=== PATIENT | male | born 1955 | race Caucasian/White ===

== ENCOUNTER 2016-10-25 11:04 | Inpatient (IN) | payer OTHER ==
--- NOTE | 2016-10-25 11:45 | PROVIDER DOCUMENTATION ---
Addendum entered and electronically signed by Carmelina Ovalles Scribe 10/25/16 18: 28: EKG Interpretation - EKG Time of EKG reading by physician:: 18:02 EKG Read and Signed by:: Silverio Lee EKG Interpretation (*Must complete 3 of following elements*): Normal Rate: 63 Rhythm: sinus rhythm with 1st degree AV block [place]: normal Original Note: HPI-Male Problem - General Chief Complaint: Urinary Retention Stated Complaint: ALLERGIC REACTION Time Seen by Provider: 10/25/16 11:38 Source: patient Allergies/Adverse Reactions: Patient Allergies Allergy/AdvReac Type Severity Reaction Status Date / Time Penicillins Allergy UNSURE Verified 10/25/16 13:26 TOLD A CHILD HE WAS ALLERGIC Home Medications: Home Medication List Medication Instructions Recorded Confirmed Last Taken Type Amlodipine Besylate 10 mg PO DAILY 10/25/16 10/25/16 Unknown History Benazepril HCl 40 mg PO DAILY 10/25/16 10/25/16 Unknown History Cholecalciferol (Vit D3) [Vitamin 5,000 unit PO DAILY 10/25/16 10/25/16 Unknown History D3] Escitalopram [Lexapro] 5 mg PO DAILY 10/25/16 10/25/16 Unknown History Ezetimibe [Zetia] 10 mg PO DAILY 10/25/16 10/25/16 Unknown History Fluticasone Propionate [Flovent 1 inh ALEXA BID 10/25/16 10/25/16 Unknown History Diskus] Omeprazole 40 mg PO DAILY 10/25/16 10/25/16 Unknown History Spironolactone 25 mg PO DAILY 10/25/16 10/25/16 Unknown History Tizanidine HCl 8 mg PO QHS 10/25/16 10/25/16 Unknown History Valacyclovir HCl [Valacyclovir] 1,000 mg PO BID 10/25/16 10/25/16 Unknown History - History of Present Illness-Male Nature of Presenting Problem: patient is a 61 y/o M that presents to the ER with urinary retention x 24 hours. patient has been on Valacylovir( started for cold sores). Has some suprapubic tenderness. no fever/chills or n/v/d. Location of Complaint: reports: suprapubic Radiation: reports: none Quality of Pain: reports: fullness, pressure Severity in ED: reports: moderate Onset/Duration: reports: gradual, last night Timing: reports: still present, constant Context/Activities at Onset: reports: none Urinary Symptoms: reports: retention. denies: dysuria, hematuria Associated Symptoms: reports: back/neck pain. denies: chest pain, constipation , fatigue, fever/chills, nausea, vomiting Similar Symptoms Previously?: No Recently seen or treated by another doctor?: No Review of Systems - Adult - REVIEW OF SYSTEMS - ADULT Constitutional: denies: chills, fever Eyes: reports: no symptoms reported Ears, Nose, Mouth & Throat: reports: no symptoms reported Cardiovascular: reports: no symptoms reported Respiratory: denies: cough, shortness of breath, wheezing Gastrointestinal: reports: abdominal pain. denies: diarrhea, nausea, vomiting Genitourinary: reports: urinary retention. denies: dysuria, flank pain, hematuria Musculoskeletal: reports: back pain. denies: joint pain, neck pain Integumentary: reports: no symptoms reported Neurological: reports: no symptoms reported Psychiatric: reports: no symptoms reported Endocrine: reports: no symptoms reported Hematologic/Lymphatic: reports: no symptoms reported Allergic/Immunologic: reports: no symptoms reported All Other Systems: Reviewed and Negative Past History - Adult - PAST MEDICAL HISTORY-ADULT Review of Records: reports: Old Records Reviewed, Nursing Assessment Review, Medications Reviewed Physical Exam-General - PHYSICAL EXAM-ADULT Initial Vital Signs Reviewed: Yes - CONSTITUTIONAL General Appearance: alert, no apparent distress - EYES Eyes: PERRL/EOMI, pink conjunctivae - HEAD, EARS, NOSE, MOUTH & THROAT HENMT: normocephalic/atraumatic, moist mucous membranes, normal ENT inspection - NECK Neck: non-tender, full range of motion, normal inspection - RESPIRATORY Respiratory: lungs clear, normal breath sounds, no respiratory distress, no accessory muscle use - CARDIOVASCULAR Cardiovascular: regular rate, rhythm, no edema, no murmur - GASTROINTESTINAL (ABDOMEN) Abdominal Exam: normal bowel sounds, soft, no organomegaly, no pulsatile mass, tenderness (suprapubic) - MUSCULOSKELETAL Back Exam: normal inspection, no CVA tenderness, no vertebral tenderness Extremity: normal range of motion, normal inspection, no pedal edema, normal capillary refill - SKIN Integumentary: normal color, warm/dry - NEUROLOGIC Neurologic: grossly normal, no motor/sensory deficits - PSYCHIATRIC Psych/Mental Status: normal mood/affect, normal thought content, normal thought process, oriented x 3 Progress - PLAN OF CARE/RESULTS Progress/Plan/Lab Results: bladder scan revealed 9cc of urine, labs will be ordered Vital Signs Temp Pulse Resp BP Pulse Ox 10/25/16 11:25 98.2 F 80 18 150/86 100 Penicillins Allergy (Verified 10/25/16 13:26) UNSURE TOLD A CHILD HE WAS ALLERGIC Amlodipine Besylate 10 mg PO DAILY 10/25/16 Benazepril HCl 40 mg PO DAILY 10/25/16 Cholecalciferol (Vit D3) [Vitamin D3] 5,000 unit PO DAILY 10/25/16 Escitalopram [Lexapro] 5 mg PO DAILY 10/25/16 Ezetimibe [Zetia] 10 mg PO DAILY 10/25/16 Fluticasone Propionate [Flovent Diskus] 1 inh ALEXA BID 10/25/16 Omeprazole 40 mg PO DAILY 10/25/16 Spironolactone 25 mg PO DAILY 10/25/16 Tizanidine HCl 8 mg PO QHS 10/25/16 Valacyclovir HCl [Valacyclovir] 1,000 mg PO BID 10/25/16 Laboratory 10/25/16 10/25/16 13:31 13:31 WBC 11.87 H RBC 4.04 L Hgb 12.4 L Hct 36.5 L MCV 90.3 MCH 30.7 MCHC 34.0 RDW Std Deviation 13.3 Plt Count 277 MPV 9.2 Immature Gran % (Auto) 0.3 Neut % (Auto) 80.9 H Lymph % (Auto) 9.2 L Ritchie % (Auto) 8.2 Eos % (Auto) 0.9 Baso % (Auto) 0.5 Immature Gran # (Auto) 0.03 Neut # (Auto) 9.61 H Lymph # (Auto) 1.09 L Ritchie # (Auto) 0.97 H Eos # (Auto) 0.11 Baso # (Auto) 0.06 Sodium 134 L Potassium 4.5 Chloride 99 Carbon Dioxide 19 L Anion Gap 16 BUN 28 H Creatinine 4.7 H Estimated GFR/1.73 m2 13 BUN/Creatinine Ratio 6 Glucose 101 Calculated Osmolality 274 Calcium 8.1 L Total Bilirubin 0.39 AST 21 ALT 13 Alkaline Phosphatase 52 Total Protein 6.5 Albumin 3.6 Globulin 2.9 Albumin/Globulin Ratio 1.2 Orders Category Date Time Status US RENAL 2 (RETROPER) COMPLETE [US] Stat Exams 10/25/16 15:09 Ordered BNP [PRO B-NATRIURETIC PEPTIDE] Stat Lab 10/25/16 15:11 Uncollected CBC WITH ELECTRONIC DIFF [HEME] Stat Lab 10/25/16 13:31 Completed CMP [COMPREHENSIVE METABOLIC PANEL] [CHEM] Stat Lab 10/25/16 13:31 Completed UA NIMS W/REFLEX CULT [URINALYSIS] Stat Lab 10/25/16 11:43 Uncollected 0.9% Sodium Chloride Inj [Ns] 1,000 ml Med 10/25/16 15:09 Active IV 125 mls/hr - CONSULTS/PCP/HOSPITALIST Notification #1 *Consult/PCP/Hospitalist*: ( [facility]) Time Discussed: 15:00 Consult Disposition: Admit (to hospitalist, consult on patient) #2 Consult: ( button maker for hospitalist) Time Discussed: 15:18 Consult Disposition: Will see in ED, Admit Departure - Departure Time of Disposition Order: 15:18 DIAGNOSIS: BRE (acute kidney injury), Decreased urine output Disposition: ADMITTED INPATIENT 09 Certified Medical Emergency: Emergent Condition: Stable Attestation - Scribe Verification/Attestation Scribe:: Cristian Lim Acting as Scribe for:: Josr Mcgregor Scribe documention review:: This chart was documented by a scribe and accurately reflects the service the provider performed and the decisions made by the provider. Physician Attestation - Physician Attestation I, the provider, attest to the following statement:: Josr Mcgregor Physician documentation Attestation:: This documentation recorded by the scribe accurately reflects the service I personally performed and the decisions made by me.
[2016-10-25 13:37] LABS: MANUAL DIFF NEEDED? NO
[2016-10-25 13:50] LABS: BASO% 0.5 % (0.0-0.8); EOS# 0.11 X1000 (0.0-0.7); EOS% 0.9 % (0.0-10.0); HEMATOCRIT 36.5 % (42.0-52.0); HEMOGLOBIN 12.4 g/dL (14.0-18.0); IMM GRAN# 0.03 X1000 (0.0-0.04); IMM GRAN% 0.3 % (0.0-0.5); LYMPH# 1.09 X1000 (1.2-3.4); LYMPH% 9.2 % (20.5-51.1); MCH 30.7 PG (27-31); MCV 90.3 FL (81-99); MONO# 0.97 X1000 (0.11-0.59); MONO% 8.2 % (1.7-9.3); MPV 9.2 FL (7.4-10.4); NEUT% 80.9 % (42.2-75.2); PLT 277 X1000 (130-400); RBC 4.04 XMIL (4.7-6.1)
[2016-10-25 14:32] LABS: ALBUMIN 3.6 g/dL (3.5-5.0); CALCIUM 8.1 mg/dL (8.8-10.2); POTASSIUM 4.5 mmol/L (3.5-5.1); TOTAL BILIRUBIN 0.39 mg/dL (0.20-1.00); TOTAL PROTEIN 6.5 g/dL (6.3-8.3)
[2016-10-25] MEDS ORDERED: NS 1,000 ML IV ONE (15:09)
[2016-10-25] MEDS ORDERED: ATIVAN IV PRN (17:41)
[2016-10-25] MEDS ORDERED: TYLENOL PO PRN (17:41)
[2016-10-25] MEDS: ZOFRAN IV PRN (18:10)
[2016-10-25 18:53] LABS: URINE CULTURE NEEDED? NO; URINE MICRO REVIEW NEEDED? NO; URINE SOURCE CATH
[2016-10-25 19:02] LABS: BILIRUBIN URINE NEGATIVE (NEGATIVE); BLOOD URINE TRACE (NEGATIVE); COLOR STRAW; GLUCOSE URINE NEGATIVE (NEGATIVE); LEUKOCYTES URINE NEGATIVE (NEGATIVE); NITRITE URINE NEGATIVE (NEGATIVE); PH URINE 6.5; PROTEIN URINE 100 mg/dL (NEGATIVE); SP GRAVITY URINE 1.004; TURBIDITY URINE CLEAR (CLEAR); UR EPITHELIAL CELLS <10 /HPF (<10); URINE BACTERIA NEGATIVE /HPF; URINE RBC <10 /HPF (<10); URINE WBC <10 /HPF (<10); UROBILINOGEN URINE NORMAL (NORMAL)
[2016-10-25 19:16] LABS: UR CREAT RANDOM 31.1 mg/dL (14-26); UR PROT RANDOM 88.5 mg/dL
[2016-10-25] MEDS: ULTRAM PO PRN (19:43)
--- NOTE | 2016-10-25 19:49 | Diag Imaging Result Document ---
PROCEDURE NAME: US RENAL 2 (RETROPER) COMPLETE - 10/25/2016 RENAL ULTRASOUND: COMPARISON: None available. FINDINGS: There is a 1.4 cm simple-appearing renal cyst at the upper pole on the left. No solid renal mass or hydronephrosis is identified. The renal echotexture is essentially unremarkable. The right kidney measures 11.5 cm and the left kidney measures 10.8 cm in the greatest longitudinal axes. The right renal cortex measures up to 1.3 cm and the left renal cortex measures up to 1 cm in thickness. The urinary bladder is only slightly distended. It is grossly unremarkable, otherwise. The prostate is grossly unremarkable measuring 3.5 x 3.2 x 3.5 cm. IMPRESSION: Small left renal cyst, but essentially unremarkable renal ultrasound otherwise.
[2016-10-25] MEDS: HEPARIN SUBQ SCH (21:00)
[2016-10-25] MEDS: FLONASE NAS SCH (22:14)
[2016-10-25] MEDS: PERICOLACE PO SCH (22:15)
--- NOTE | 2016-10-25 22:19 | HISTORY AND PHYSICAL ---
PRIMARY CARE PROVIDER: Lazara Mendoza. CHIEF COMPLAINT: No urine output for 24 hours. HISTORY OF PRESENT ILLNESS: Mr. Lenz is a 61-year-old male who is in no acute distress. He has a past medical history of hypertension, GERD, hyperlipidemia, herpetic lesions of the oropharynx and all the way to the nose and chronic back pain and constipation who apparently had been having fever blisters over the last couple days, went to his primary who gave him valacyclovir that he is supposed to take 1000 mg twice daily. He states that in the past when he has had outbreaks that went all the way to his nose he would double or even triple take what he is not prescribed, this time he states he took a 1000 mg every 4 hours. He noted that for the last 24 hours he has had some CVA tenderness with no urine output and has nausea so he presented to the ER with these complaints. He had a full workup which revealed he had a BUN of 28 and a creatinine of 4.7 and looking at past medical history he does not have a history of CKD. He states that he does not take any other medications such as ibuprofen or anything like that. He also drinks about 6 beers per day with the last being about 2 days ago. There may be some small lesions above the lip and maybe on the nose but they are not significant. At this time will admit to the medical floor. Hold all nephrotoxic medications, give him IV fluid hydration and follow with Dr. Malin's recommendations. He is going for a renal ultrasound which is not resulted. PAST MEDICAL HISTORY: Hypertension, GERD, hyperlipidemia, herpes labialis, chronic back pain. BPH untreated. SURGICAL HISTORY: Vasectomy, nasal surgery and tonsillectomy. SOCIAL HISTORY: Quit smoking 15 years ago. Prior to that smoked 1-1/2 packs per day for 20 years. Denies any illicit drug use but drinks approximately 6 beers per day. FAMILY HISTORY: Father had coronary artery disease, atrial fibrillation, had a pacemaker and mother who had congestive heart failure. REVIEW OF SYSTEMS: Fourteen point review of systems were complete and all were negative except for those mentioned above HPI. He does have some dry mouth and thirst. Patient complains of constipation. ALLERGIES: Penicillin. HOME MEDICATIONS: He does take Ultram which does not seem to be listed on his medication list, he also takes amlodipine 10 mg p.o. daily, benazepril 40 mg p.o. daily, Zetia 10 mg p.o. daily, fluticasone inhaled twice daily, Lexapro 5 mg p.o. daily, omeprazole 40 mg, spironolactone 25 mg daily, tizanidine HCl 8 mg p.o. nightly, acyclovir 1000 mg p.o. twice daily, vitamin D3 5000 units p.o. daily. LABORATORY DATA: White blood cells 11,000, hemoglobin 12, hematocrit 36, platelet count 277,000. Sodium 134, potassium 4.5, BUN 28, creatinine 4.7, GFR 13, glucose 101, calcium 8.1, total bilirubin 0.39, AST 21, ALT 13, proBNP 948. IMAGING: Renal ultrasound pending. PHYSICAL EXAMINATION: VITAL SIGNS: Temperature 98.2 degrees, pulse rate 80, respiratory rate 18, blood pressure 150/86, O2 saturation 100% on room air, 5 feet 7 inches tall, 178 pounds, BMI 27.9. GENERAL: Mr. Ariel Lenz 61-year-old male in no acute distress. He is able answer all questions appropriately. HEENT: Atraumatic normocephalic. Pupils equal, round, reactive to light. Extraocular movements intact. Mucous membranes are dry. NECK: No JVD or carotid bruits noted. CARDIOVASCULAR: S1, S2. Regular rate and rhythm. No rubs, gallops, murmurs. PULMONARY: Clear to auscultate. Bilateral breath sounds. No accessory muscle use or work of breathing noted soft. GI: Soft, mildly distended, positive bowel sounds x4. No tenderness upon palpation but did have some bilateral CVA tenderness with palpitation. EXTREMITIES: No edema noted, +2 dorsalis radial pulses. NEUROLOGIC: Alert and oriented x4. Moves all extremities equally. ASSESSMENT AND PLAN: 1. Acute kidney injury likely acute tubular necrosis. Will do renal urine studies, FENA. Dr. Hernandez will following, follow up on the renal ultrasound, will get aggressive IV fluid hydration to flush the kidneys, will place a Marie for strict I and O, apparently he had a bladder ultrasound in the emergency room and only had 9 mL of urine and the patient states that he has not had any urine output the last 24 hours. 2. Hypertension. Currently we are going to hold off on medications any nephrotoxic medications such as his LUPE inhibitor for now. 3. Hyperlipidemia. I am going to hold on a statin. 4. Herpes labialis os likely herpes simplex 1, he takes valacyclovir at home and took too much of this medication, will also hold it and patient was instructed on the importance of not taking more than what is prescribed of his medication. 5. Gastroesophageal reflux disease prophylaxis do proton pump inhibitor. 6. Benign prostatic hypertrophy currently on no medications. Will hold medication for now. 7. Chronic back pain noted. 8. Alcohol abuse. Ativan IV p.r.n. as needed for any signs or symptoms of withdrawal, apparently his last alcoholic beverage was 2-1/2 beers yesterday morning Tuesday. 9. Deep venous thrombosis prophylaxis heparin 5000 units subcu every 12 hours. 10. Complains of constipation. Will do Marjan-Colace twice a day, apparently his last bowel movement was 2 days ago. 11. Anemia, MCV is normal but will go ahead and do anemia labs. Dictated by XAVI Becerra for Sedrick Bonner MD
--- NOTE | 2016-10-25 23:47 | CONSULTATION ---
DATE OF CONSULTATION: 10/25/2016 CONSULTING PHYSICIAN: Dr. Mcgregor. REASON FOR CONSULTATION: Acute kidney injury. HISTORY OF PRESENT ILLNESS: This is a 61-year-old gentleman seen in the emergency room who is in the process of admission. He has a history of fever blisters for which she has a standing order for valacyclovir 1000 mg q.12 hours. The patient states that a couple days ago he had a large fever blister rise and he started taking his valacyclovir on a 4 hour basis. He said he did this for couple of days then began having back pain, fever, nausea, headache and significantly decreased urine output to the point that over the last 24 hours he states he has probably had less than a teaspoon of urine output. He presented to the emergency room for these symptoms, had labs drawn and was found to have a creatinine 4.7. Of note his last creatinine in 2013 was 1.2. The patient has been unable to give a urine specimen. He did have a bladder scan and it indicated that he had empty bladder. He is preparing to go for a renal ultrasound at the end of our interview. PAST MEDICAL HISTORY: Hypertension greater than 10 years, hyperlipidemia, GERD , anxiety, depression. PAST SURGICAL HISTORY: He has had stress test. ALLERGIES: Penicillin. HOME MEDICATIONS: Escitalopram, tizanidine, omeprazole, Zetia, vitamin D, fluconazole, amlodipine, benazepril, spironolactone and valacyclovir as needed. FAMILY HISTORY: Noncontributory. No kidney disease noted. SOCIAL HISTORY: No tobacco or illicit drug use. He does take muscle relaxers. He does drink up to a 6 pack of beer daily. REVIEW OF SYSTEMS: Pertinent positives noted above in the HPI. PHYSICAL EXAMINATION: Vital Signs: Temperature 98.2 degrees, pulse 80, respiratory rate 18, blood pressure 150/86. Intake and output have not been measured. General: This is a middle-aged gentleman sitting in a chair. He is awake and alert, able to give me an appropriate history. He is able to assist with exam. HEENT: Normocephalic, atraumatic. Wears glasses. His oral mucosa is moist. His dentition excellent. Tongue is midline. Conjunctivae are pink. JEFFRY. Neck: Supple. Trachea midline. There is no lymphadenopathy. There is no JVD. Cardiovascular: Reveals a regular rate and rhythm. No murmur or gallop is appreciated. Pulmonary: He has equal excursion. He is clear bilaterally. He has no increased work of breathing on room air. Abdomen: Mildly distended, tight, he has positive bowel sounds. : Not inspected. He has been unable to void. Extremities: He has 1+ pretibial edema. He has no clubbing or cyanosis. He is moving all extremities. He is ambulatory without assistance. Integumentary: Skin is warm and dry. There is no rash or lesion appreciated. Does have a fever blister noted to the lip. Neuro: Was grossly nonfocal. He is awake, alert, oriented x4. LAB DATA: WBC of 11.8, hemoglobin 12.4, hematocrit 36.5 and platelet count of 277,000. Sodium 134, potassium 4.5, CO2 19, BUN 28, creatinine 4.7, calcium 8.1, albumin 3.6. ASSESSMENT AND PLAN: 1. Acute kidney injury unclear etiology. Differentials to include nephrotoxic medication. His valacyclovir is a risk to cause acute kidney injury. If the patient is able to obtain a urine specimen we will check for a FENA to rule out ATN. He is to go for an ultrasound now to check for postrenal causes. We would hold his valacyclovir as well as his lisinopril while in the hospital during this initial phase. I did discuss with the patient that there are instances where patients are required to have dialysis as a bridge to recovery. We will check labs again in the morning. 2. Electrolytes, acceptable. 3. Acid-base balance. He is mildly acidic. Continue to monitor, add bicarbonate as needed. 4. Hypertension currently controlled. Thank you for the consult this. Data reviewed, discussed with America Obrien on 10/25/16. I agree with the above assessment and plan of care. rg Dictated by XAVI Oliveira for Pranav Malin MD [facility]
[2016-10-26 04:04] LABS: FREE T4 0.93 ng/dL (0.93-1.70)
[2016-10-26] MEDS: ULTRAM PO PRN ×2 (04:33→12:19)
[2016-10-26] MEDS: PRILOSEC PO SCH (06:28)
[2016-10-26 06:58] LABS: MANUAL DIFF NEEDED? NO
[2016-10-26 07:16] LABS: BASO% 0.6 % (0.0-0.8); EOS# 0.06 X1000 (0.0-0.7); EOS% 0.6 % (0.0-10.0); HEMATOCRIT 36.2 % (42.0-52.0); HEMOGLOBIN 12.3 g/dL (14.0-18.0); IMM GRAN# 0.02 X1000 (0.0-0.04); IMM GRAN% 0.2 % (0.0-0.5); LYMPH% 9.3 % (20.5-51.1); MCH 30.5 PG (27-31); MCV 89.8 FL (81-99); MONO# 0.86 X1000 (0.11-0.59); MPV 9.6 FL (7.4-10.4); NEUT% 81.3 % (42.2-75.2); PLT 279 X1000 (130-400); RBC 4.03 XMIL (4.7-6.1)
[2016-10-26 07:41] LABS: ALBUMIN 3.3 g/dL (3.5-5.0); CALCIUM 7.7 mg/dL (8.8-10.2); MAGNESIUM 1.8 mg/dL (1.5-2.7); POTASSIUM 4.8 mmol/L (3.5-5.1); TOTAL BILIRUBIN 0.37 mg/dL (0.20-1.00); TOTAL PROTEIN 5.9 g/dL (6.3-8.3)
--- NOTE | 2016-10-26 07:51 | Diag Imaging Result Document ---
PROCEDURE NAME: CHEST-2 VIEWS - 10/25/2016 FRONTAL AND LATERAL CHEST, TWO VIEWS: FINDINGS: The lungs are well expanded. The heart is not enlarged. The vessels are not distended. No infiltrates. No pleural effusions. There is granuloma in the lower left lung. Slight curvature to the spine. IMPRESSION: No pneumonia.
[2016-10-26 08:07] LABS: INR 0.98; PTT 27.3 Seconds (22.0-36.0)
--- NOTE | 2016-10-26 09:09 | EKG Report ---
Test Performed on : 10/26/2016 06:24:34 AM Test Reason : chest pain Blood Pressure : / mmHG Vent. Rate : 063 BPM Atrial Rate : 063 BPM P-R Int : 204 ms QRS Dur : 084 ms QT Int : 416 ms P-R-T Axes : 045 009 013 degrees QTc Int : 425 ms Normal sinus rhythm. Normal ECG When compared with ECG of 25-OCT-2016 18:02, (Unconfirmed) No significant change was found Confirmed by Rad OBREGON, Alexei Bynum ([id number]) on 10/27/2016 3:22:33 PM
--- NOTE | 2016-10-26 09:45 | EKG Report ---
Test Performed on : 10/25/2016 6:02:46 PM Test Reason : ED. Not ordered in [place] Blood Pressure : / mmHG Vent. Rate : 063 BPM Atrial Rate : 063 BPM P-R Int : 212 ms QRS Dur : 090 ms QT Int : 444 ms P-R-T Axes : 029 002 013 degrees QTc Int : 454 ms Sinus rhythm. with 1st degree AV block. Otherwise normal ECG No previous ECGs available Unconfirmed Result
[2016-10-26] MEDS: HEPARIN SUBQ SCH ×2 (10:05→21:34)
[2016-10-26] MEDS: FLONASE NAS SCH ×2 (10:05→21:34)
[2016-10-26] MEDS: LEXAPRO PO SCH (10:06)
[2016-10-26] MEDS: VITAMIN D PO SCH (10:06)
[2016-10-26] MEDS: PERICOLACE PO SCH ×2 (10:06→21:35)
--- NOTE | 2016-10-26 15:32 | PROGRESS NOTE ---
DATE: 10/26/2016 SUBJECTIVE: This patient states that he is feeling about the same. He has no specific complaints today. No nausea, vomiting. No chest pain. No shortness of breath. No diarrhea and no constipation. OBJECTIVE: Vital Signs: Temperature 97.7 degrees, pulse 64, respiratory rate 18, blood pressure 127/73, O2 saturation 96 on room air. HEENT: Head normocephalic. No trauma. PERRLA. Neck: Supple. No JVD. No masses. Central trachea. Chest: Mild rales at the level of the left lower lung. Abdomen: Soft, nontender, nondistended. No hepatosplenomegaly. Cardiovascular: RRR. No murmurs. No gallops. Extremities: 1+ lower extremity edema. Neurological: The patient is alert and oriented x3. No focal neurological deficits. LABORATORY: WBC 10.8, hemoglobin 12.3, hematocrit 36.2, platelets 279,000. Sodium 132, potassium 4.8, chloride 98, bicarbonate 18, BUN 33, creatinine 6.1, glucose 87, calcium 7.7, albumin 3.3. ASSESSMENT AND PLAN: 1. Acute kidney injury. Nephrology Department is following this patient. This patient is eating and drinking without any problems. He is not complaining of any pain or shortness of breath. He has some edema at the level of the lower extremities, will continue to monitor. 2. Hypertension. We stopped all the nephrotoxic medications. Will continue to monitor. 3. Hyperlipidemia. Continue with the same management. 4. Herpes labialis. This patient was taking valacyclovir at home and apparently he took too much medication, this probably the cause of the kidney injury, we stopped this medication. 5. Gastroesophageal reflux disease. Continue with PPI. 6. Benign prostatic hypertrophy currently on no medication. 7. Chronic back pain. Aware. 8. Alcohol abuse. Will do Ativan p.r.n. for any signs or symptoms of withdrawal. Apparently he has been drinking beers daily. Will monitor. 9. Deep vein thrombosis prophylaxis. Will do heparin 5000 units subcu every 12 hours. 10. Constipation. Will continue with Marjna-Colace twice a day. 11. Anemia. Will monitor.
[2016-10-26] MEDS: NS 1,000 ML IV SCH (15:45)
--- NOTE | 2016-10-26 16:47 | PROGRESS NOTE ---
DATE: 10/26/2016 SUBJECTIVE: Mr. Lenz is resting quietly in bed. He denies any chest pain. No increased work of breathing. States that he is actually feeling a little bit stronger. He is without complaints. OBJECTIVE: His most recent vital signs are temperature 98 degrees, blood pressure 136/80, heart rate 63, respirations are 16. He is on room air. Last recorded saturation 98% . He has had 1208 in. He has started urinating, 425 out per void. LABS: Sodium 132, potassium 4.8, chloride 98, CO2 18. BUN 33, creatinine 6.1, glucose 87. Anion gap 16. Calcium 7.7, phosphorus 4.5, albumin 3.3. White count 10.8, hemoglobin 12.3, hematocrit 36.2, with a platelet count of 279,000. TSH is 1.86. His free T4 is 0.93. Urine eosinophils are negative. He has a FENa score of 6.0. His iron percent saturation is 13% with a ferritin of 95. PHYSICAL EXAM: This is a 61-year-old white male. He is currently resting in bed. He is in no acute distress.Skin: Warm and dry. HEENT: Normocephalic, atraumatic. Conjunctivae pink. He has JEFFRY. Mucous membranes moist. Neck: Supple. Trachea midline. No JVD. Cardiovascular: Regular rate and rhythm. He is without murmur or gallop. Lungs: Clear to auscultation anteriorly. Equal excursion. He is on room air. Abdomen: Round, soft, nontender. Positive bowel sounds. Genitourinary: Not inspected. Adequate urine out at this time. Extremities: Have 1+ pretibial edema. No clubbing or cyanosis. Integumentary: Skin is warm and dry without rashes or lesions. Patient does have a healing fever blister noted to the lips. Neurological: Alert and oriented x3. ASSESSMENT AND PLAN: 1. Acute kidney injury. More than likely, this is acute tubular necrosis secondary to an nephrotoxic medication. Patient had been taking his valacyclovir every 4 hours instead of q.12. He is now currently urinating. BUN and creatinine have continued to slowly rise. Patient has no uremic complaints. His valacyclovir is currently held. His lisinopril is currently on hold. We will start IV fluids in an attempt to flush kidneys. Patient has no respiratory distress. We will continue to monitor. 2. Electrolytes and acid-base balance. These remain stable with mild acidosis secondary to #1. 3. Hypertension. This has improved. 4. Anemia. This is stable. I would like to thank you for allowing us to follow with this patient. Data reviewed, discussed with Andrew Peng on 10/26/16. I agree with the above assessment and plan of care. rg Dictated by XAVI Kraft for Pranav Malin MD [facility]
[2016-10-27] MEDS: NS 1,000 ML IV SCH ×4 (04:17→20:59)
[2016-10-27] MEDS: PRILOSEC PO SCH (06:39)
[2016-10-27 07:37] LABS: HEMATOCRIT 35.1 % (42.0-52.0); HEMOGLOBIN 11.8 g/dL (14.0-18.0); MCH 30.7 PG (27-31); MCHC 33.6 g/dL (33-37); MCV 91.4 FL (81-99); MPV 9.4 FL (7.4-10.4); RBC 3.84 XMIL (4.7-6.1)
[2016-10-27 08:00] LABS: ALBUMIN 2.9 g/dL (3.5-5.0); CALCIUM 7.5 mg/dL (8.8-10.2); POTASSIUM 4.9 mmol/L (3.5-5.1)
[2016-10-27] MEDS: HEPARIN SUBQ SCH ×2 (08:24→21:00)
[2016-10-27] MEDS: LEXAPRO PO SCH (08:24)
[2016-10-27] MEDS: VITAMIN D PO SCH (08:24)
[2016-10-27] MEDS: FLONASE NAS SCH ×2 (08:25→21:02)
[2016-10-27] MEDS: PERICOLACE PO SCH ×2 (08:25→21:00)
[2016-10-27] MEDS: ZOFRAN IV PRN (08:39)
--- NOTE | 2016-10-27 08:46 | PROGRESS NOTE ---
DATE: 10/27/2016 SUBJECTIVE: Patient currently resting in bed. States he has been able to eat. He has had some mild nausea, but no morning sickness. He states his urine output has picked up. He denies other uremic symptoms. He states he actually feels better today. OBJECTIVE: Vital Signs: Temperature 97.7, pulse 63, respiratory rate 18, blood pressure 128/73. Intake 2.3 L. Output 1.2 L. General: On exam, this is a middle-aged gentleman resting in bed. He is awake and alert. No acute distress. HEENT: Normocephalic, atraumatic. JEFFRY, oral mucosa moist. Neck: Supple. Trachea midline. Cardiovascular: Regular rate and rhythm. No murmur or gallop appreciated. Pulmonary: He has equal excursion. He is clear bilaterally. He is on room air. Abdomen: Soft, with positive bowel sounds. Distention is improved from the initial exam. Extremities: There is trace pretibial edema. There is no clubbing, cyanosis. He is ambulatory without assistance. Integumentary: Skin is warm and dry without rash or lesions aside to a herpetic eruption on his lip. LAB DATA: Pending. ASSESSMENT AND PLAN: 1. Acute kidney injury, acute tubular necrosis secondary to nephrotoxic medication: Valcyclovir. His urine output has picked up nicely over the last 24 hours. We are awaiting his labs. He has no absolute indication for dialysis at this time. However, once we have labs back or if his condition deteriorates and warrants a different plan of action, further orders will follow. Remove calero. 2. Electrolytes, acid-base balance, anemia. Again, labs are pending. 3. Hypertension controlled. Continue to hold lisinopril. Seen, data reviewed, discussed with America Obrien on 10/27/16. I agree with the above assessment and plan of care. rg Dictated by XAVI Oliveira for Pranav Malin MD [facility]
--- NOTE | 2016-10-27 14:51 | PROGRESS NOTE ---
DATE: 10/27/2016 SUBJECTIVE: This patient has no specific complaints at this moment. He denies nausea, vomiting, chest pain, diarrhea, or constipation. No fever. No chills. OBJECTIVE: Vital Signs: Temperature 98.1 degrees, pulse 66, respiratory rate 16, blood pressure 127/76, oxygen saturation 98 on room air. HEENT: Head normocephalic. No trauma. PERRLA. Neck: Supple. No JVD. No masses. Central trachea. Chest: Clear to auscultation. No wheezing. No rales. Abdomen: Soft, nontender, nondistended. No hepatosplenomegaly. Cardiovascular: RRR. No murmurs. Extremities: There is 1+ lower extremity edema up to the knee. Neurological: The patient is alert and oriented x3. No focal neurological deficits. LABORATORY: WBC 9.9, hemoglobin 11.8, hematocrit 35.1, platelet 255,000. Sodium 129, potassium 4.9, chloride 98, bicarbonate 17, BUN 39, creatinine 7.4, glucose 80, calcium 7.5, phosphorus 4, albumin 2.9. ASSESSMENT AND PLAN: 1. Acute kidney injury, likely secondary to acute tubular necrosis, secondary to medications. Apparently this patient started taking valacyclovir more frequently and after that he started having this problem. We will continue following the recommendations of nephrology department. This patient is getting IV fluids. He has nonspecific symptoms at this moment. 2. Hypertension. We already stopped all the nephrotoxic medications. We will continue to monitor. 3. Hyperlipidemia. Continue with the same management. 4. Herpes labialis. Continue to monitor. 5. Gastroesophageal reflux disease. Continue with proton pump inhibitor. 6. Benign prostatic hypertrophy. This patient is not on medications at this moment. 7. Chronic back pain. Aware. 8. Alcohol abuse. This patient is on Ativan p.r.n. for any signs or symptoms of withdrawal. Apparently he has been drinking beer daily. Will monitor. 9. Deep vein thrombosis prophylaxis. Continue with heparin 5000 units subcutaneously every hours. 10. Constipation. Continue with Marjan-Colace twice a day. 11. Anemia. Will monitor.
[2016-10-28] MEDS: NS 1,000 ML IV SCH (04:57)
[2016-10-28 07:53] LABS: HEMATOCRIT 34.4 % (42.0-52.0); HEMOGLOBIN 11.6 g/dL (14.0-18.0); MCH 30.8 PG (27-31); MCHC 33.7 g/dL (33-37); MCV 91.2 FL (81-99); MPV 9.4 FL (7.4-10.4); RBC 3.77 XMIL (4.7-6.1)
[2016-10-28] MEDS: PRILOSEC PO SCH (08:00)
[2016-10-28 08:11] LABS: CALCIUM 7.7 mg/dL (8.8-10.2); POTASSIUM 4.9 mmol/L (3.5-5.1)
[2016-10-28] MEDS: HEPARIN SUBQ SCH (08:34)
[2016-10-28] MEDS: PERICOLACE PO SCH (08:35)
[2016-10-28] MEDS: LEXAPRO PO SCH (08:35)
[2016-10-28] MEDS: VITAMIN D PO SCH (08:36)
[2016-10-28] MEDS: FLONASE NAS SCH (10:00)
[2016-10-28 15:35] VITALS: BP 132/78
--- NOTE | 2016-10-28 16:10 | PROGRESS NOTE ---
DATE: 10/28/2016 TIME SEEN: 0830. SUBJECTIVE: Mr. Lenz is sitting up in bed. His family is at his bedside. He is eating his breakfast. He has no complaints of pain or discomfort. No increased work of breathing. OBJECTIVE: Vital Signs: His most recent vital signs are temperature 97.7 degrees, blood pressure 140/73, heart rate 62, respirations 10. He is on room air. Last recorded saturation 100%. He has had 2375 in. He has had 4025 out per void. LABORATORIES: His most recent laboratories show sodium 137, potassium 4.9, chloride 106, CO2 of 16, BUN 43, creatinine 7.6, and glucose 79. His anion gap is 15, calcium 7.7, phosphorus 4.3, albumin of 3. White count 7.42, hemoglobin 11.6, hematocrit 34.4, with a platelet count of 266,000. PHYSICAL EXAMINATION: General: This is a 61-year-old white male. He is currently resting in bed. He is in no acute distress. Skin: Warm and dry. HEENT: Normocephalic, atraumatic. Conjunctivae pale. He has JEFFRY. Mucous membranes are moist. Neck: Supple. Trachea midline. No JVD. Cardiovascular: Regular rate and rhythm. No murmur or gallop appreciated. Lungs: Clear to auscultation anteriorly. Equal excursion on room air. Abdomen: Round , soft, nontender. Positive bowel sounds. Genitourinary: Not inspected. Patient has had Marie catheter removed. Adequate void. Extremities: He has trace pretibial edema. No clubbing or cyanosis. Integumentary: No rashes or lesions evident, with continued herpetic eruption on his lip. Neurological: Alert and oriented x3. ASSESSMENT AND PLAN: 1. Acute kidney injury. This is more than likely acute tubular necrosis. Patient's creatinine appears to have plateaued. He has adequate urine out. We have discussed if the patient is discharged that we will need laboratories 2 times a week, on Tuesdays and , done at [facility] so we can see these laboratories on a daily basis as drawn and continue to monitor, and he is to follow up in our office on 11/17/2016. 2. Electrolytes, acid-base balance, and anemia. These are stable. 3. Hypertension. This has continued to be controlled. He has his lisinopril on hold. I would to thank you for allowing us to follow with this patient. Seen, data reviewed, discussed with Andrew Peng on 10/28/16. I agree with the abive assessment and plan of care. rg Dictated by XAVI Kraft for Pranavflo Malin MD [facility]
--- NOTE | 2016-10-29 14:19 | DISCHARGE SUMMARY ---
ADMISSION DATE: 10/25/2016 DISCHARGE DATE: 10/28/2016 CONSULTATIONS: Dr. Pranav Malin with Nephrology. STUDIES AND PROCEDURES: Renal ultrasound showed a small left renal cyst but essentially unremarkable. DISCHARGE DIAGNOSES: 1. Acute kidney injury secondary to acute tubular necrosis secondary to medications. The patient started taking acyclovir more frequently and then he started having this issue. The patient was placed on IV fluids. Followed by Nephrology. The patient's urine output has picked up greatly. There was no indication for dialysis and he will follow up with Nephrology soon with labs. Stable. 2. Hypertension. Controlled. Continue to hold his lisinopril. 3. Hyperlipidemia. 4. Herpes labialis. Continue to monitor. 5. Gastroesophageal reflux disease. Continue proton pump inhibitors. 6. BPH. The patient is not on any medications for this. 7. Chronic back pain. Aware. 8. Alcohol abuse. The patient was monitored for delirium tremens. He did have Ativan available p.r.n. No signs and symptoms of delirium tremens or withdrawal. 9. Constipation. Resolved. 10. Anemia. Stable. HOSPITAL COURSE: Briefly, Mr. Lenz is a 61-year-old male, who has a past medical history of hypertension, GERD, hyperlipidemia, herpetic lesions of the oropharynx and all the way to the nose, and chronic back pain and constipation. He had been having fever blisters over the last couple of days. He went to his PCP, who had given him acyclovir, he was supposed to take 1000 mg twice daily. He states that in the past when he had outbreaks that went all the way to his nose he would even double or triple what was prescribed. This time he took 1000 mg every 4 hours. He noticed that within the last 24 hours he had some CVA tenderness with no urine output and nausea. This is what he presented to the ED with. A full workup revealed a BUN of 28 and a creatinine of 4.7. The patient also reported drinking 6 beers per day with the last being 2 days prior to his admission. Patient did have a small lesion above the lip and maybe the nose but they were not significant. The patient was admitted to the medical floor. All nephrotoxic medications were held. He was started on IV hydration with a consult with Nephrology. Renal ultrasound did not show any medical renal disease. His electrolytes and acid base were acceptable. His BUN and creatinine have continued to slowly rise during his admission. His acyclovir was held as well as his lisinopril. Again he continued on IV fluids. On admission, patient's BUN was 28, creatinine was 4.7, again it continued to arise, today his BUN was 43 and creatinine was 7.6. The patient's urine output has picked up nicely. He has no indications for dialysis. His Marie catheter was removed. We will continue to hold nephrotoxic drugs at the time of his discharge. Patient already has been set up with an appointment in Dr. Malin's office and he will need labs every Tuesday and Tuesday to be completed at [facility] for 3 weeks. He will also follow up with his primary care physician, Lazara Mendoza. DISCHARGE MEDICATIONS: 1. Flonase 1 spray nasally b.i.d. 2. Lexapro 5 mg p.o. daily. 3. Vitamin D 5000 units p.o. daily. DISCHARGE DIET: Renal. FOLLOWUP: Patient is being discharged home. He will follow up in Dr. Malin' s office as indicated and will continue to follow labs on Tuesday and Tuesday for 3 weeks. Patient can return to the ED for any worsening of symptoms. DISCHARGE TIME: 35 minutes. Dictated by XAVI Thomas for Joe Phillip MD [facility]
== END 2016-10-28 18:00 | disposition home or self-care (01) | DRG 917 ==
LOC: ED 11:04 → EDIPHOLD 11:05 → 3N 10-26 10:27
PROVIDERS: ATTEND Internal Medicine
DX: T37.5X1A Poisoning by antiviral drugs, accidental (unintentional), initial encounter (principal); N17.0 Acute kidney failure with tubular necrosis; I10 Essential (primary) hypertension; B00.1 Herpesviral vesicular dermatitis; E78.5 Hyperlipidemia, unspecified; D64.9 Anemia, unspecified; K21.9 Gastro-esophageal reflux disease without esophagitis; N40.0 Benign prostatic hyperplasia without lower urinary tract symptoms; K59.00 Constipation, unspecified; F10.10 Alcohol abuse, uncomplicated; Z79.899 Other long term (current) drug therapy; Z87.891 Personal history of nicotine dependence; Z95.0 Presence of cardiac pacemaker; Z82.49 Family history of ischemic heart disease and other diseases of the circulatory system
CPT/HCPCS: 71020; 76770; 80053; 80069; 81001; 82550; 82570; 82607; 82728; 82746; 83540; 83550; 83735; 83880; 84156; 84300; 84439; 84443; 85025; 85027; 85610; 85730; 87205; 93005; 96372; 96374; 96375; J1644; J2060; J2405; J7030